=== PATIENT | female | born 1975 | race Caucasian/White ===

== ENCOUNTER 2024-12-03 18:38 | Emergency (ER) | payer OTHER ==
[2024-12-03 19:30] LABS: BASOPHILS PERCENT AUTO 0.4 % (0.2-1.5); EOSINOPHILS ABSOLUTE AUTO 0.1 x10-3/uL (0.0-0.8); EOSINOPHILS PERCENT AUTO 1.3 % (0.6-8.1); HEMOGLOBIN 13.7 g/dL (11.4-15.5); LYMPHOCYTES PERCENT AUTO 38.6 % (18.4-52.1); MEAN CORPUSCULAR HEMOGLOBIN 29.5 pg (23.9-33.9); MEAN CORPUSCULAR HGB CONC 34.2 g/dL (31.9-34.8); MEAN CORPUSCULAR VOLUME 86.3 fL (76.7-100.5); MEAN PLATELET VOLUME 7.5 fL (7.1-12.4); MONOCYTES ABSOLUTE AUTO 0.4 x10-3/uL (0.3-1.0); MONOCYTES PERCENT AUTO 5.4 % (4.4-15.7); NEUTROPHILS ABSOLUTE AUTO 4.2 x10-3/uL (1.5-6.3); NEUTROPHILS PERCENT AUTO 54.3 % (30.8-76.2); PLATELET COUNT,PLT 331 x10(3)uL (151-488); RED BLOOD CELL COUNT 4.64 x10(6)uL (3.60-5.20); RED CELL DISTRIBUTION WIDTH 13.3 % (12.3-16.5); WHITE BLOOD CELL COUNT,WBC 7.7 x10-3/uL (3.0-10.3)
[2024-12-03] MEDS: Sodium Chloride 0.9% 1,000 ML IV ONE (19:33)
[2024-12-03] MEDS: HYDROmorphone 2 MG/ML SDV IVPUSH ONE (19:33)
[2024-12-03] MEDS: Ondansetron 4 MG/2 ML SDV IVPUSH PRN (19:34)
[2024-12-03 19:36] LABS: BLOOD UREA NITROGEN,BUN 13 mg/dL (7-18); BUN/CREATININE RATIO 11.8 (9-20); CALCIUM 9.2 mg/dL (8.6-10.2); CARBON DIOXIDE,CO2 31 mmol/L (21-32); CHLORIDE,CL 102 mmol/L (100-110); CREATININE 1.1 mg/dL (0.55-1.02); EST CRCL DRUG DOSING (CG) 65.36 mL/min; ESTIMATED GFR 62 mL/min (>60); GLUCOSE RANDOM 144 mg/dL (80-116); POTASSIUM,K 3.6 mmol/L (3.5-5.3); SODIUM,NA 140 mmol/L (135-145)
[2024-12-03 19:41] LABS: A/G RATIO 1.3; ALANINE AMINOTRANSFERASE,ALT 50 U/L (12-36); ALBUMIN 4.2 g/dL (3.5-5.2); ALKALINE PHOSPHATASE 85 IU/L (56-112); ASPARTATE AMNIOTRANSFERASE,AST 33 IU/L (5-25); PROTEIN TOTAL,TP 7.4 g/dL (6.0-8.0)
[2024-12-03] MEDS: Iopamidol 755 Mg/ML 100 ML Bottle IV SCH (20:17)
[2024-12-03 20:21] LABS: BILIRUBIN TOTAL 0.4 mg/dL (0.1-1.3)
[2024-12-03] MEDS: Promethazine 12.5 MG in Sodium Chloride 0.9% 50 ML IV PRN (20:44)
[2024-12-03] MEDS: Alum Hydroxide/Mag Hydroxide 15 ML, Lidocaine 2% 15 ML PO ONE (21:23)
== END 2024-12-03 21:35 | disposition home or self-care (01) ==
LOC: FB.ED 18:38
DX: K21.9 Gastro-esophageal reflux disease without esophagitis (principal); Z79.899 Other long term (current) drug therapy
CPT/HCPCS: 36415; 74177; 80053; 83690; 85025; 96365; 96375; 99284; A9270; J1171; J2405; J2550; Q9967

== ENCOUNTER 2025-01-03 19:43 | Emergency (ER) | payer OTHER ==
[2025-01-03] MEDS: hydrOXYzine HCl 50 MG/ML SDV IM ONE (20:17)
[2025-01-03] MEDS: HYDROmorphone 2 MG/ML SDV IM ONE (20:17)
[2025-01-03] MEDS ORDERED: Sodium Chloride 0.9% 10 ML Syringe FLUSH PRN (20:32)
[2025-01-03] MEDS: Ondansetron 4 MG/2 ML SDV IVPUSH ONE (20:40)
[2025-01-03] MEDS: LORazepam 2 MG/ML SDV IVPUSH ONE (20:41)
[2025-01-03] MEDS: fentaNYL 100 MCG/2 ML SDV IVPUSH ONE (20:42)
[2025-01-03 20:47] LABS: BASOPHILS ABSOLUTE AUTO 0.1 x10-3/uL (0.0-0.1); BASOPHILS PERCENT AUTO 0.7 % (0.2-1.5); EOSINOPHILS ABSOLUTE AUTO 0.1 x10-3/uL (0.0-0.8); EOSINOPHILS PERCENT AUTO 1.1 % (0.6-8.1); HEMATOCRIT 40.2 % (34.2-48.2); HEMOGLOBIN 13.6 g/dL (11.4-15.5); LYMPHOCYTES ABSOLUTE AUTO 3.4 x10-3/uL (1.0-4.4); LYMPHOCYTES PERCENT AUTO 40.2 % (18.4-52.1); MEAN CORPUSCULAR HEMOGLOBIN 29.3 pg (23.9-33.9); MEAN CORPUSCULAR HGB CONC 33.9 g/dL (31.9-34.8); MEAN CORPUSCULAR VOLUME 86.5 fL (76.7-100.5); MEAN PLATELET VOLUME 7.5 fL (7.1-12.4); MONOCYTES ABSOLUTE AUTO 0.6 x10-3/uL (0.3-1.0); MONOCYTES PERCENT AUTO 6.8 % (4.4-15.7); NEUTROPHILS ABSOLUTE AUTO 4.3 x10-3/uL (1.5-6.3); NEUTROPHILS PERCENT AUTO 51.2 % (30.8-76.2); PLATELET COUNT,PLT 339 x10(3)uL (151-488); RED BLOOD CELL COUNT 4.65 x10(6)uL (3.60-5.20); RED CELL DISTRIBUTION WIDTH 13.5 % (12.3-16.5); WHITE BLOOD CELL COUNT,WBC 8.5 x10-3/uL (3.0-10.3)
[2025-01-03 20:49] LABS: BLOOD UREA NITROGEN,BUN 14 mg/dL (7-18); BUN/CREATININE RATIO 12.7 (9-20); CALCIUM 9.2 mg/dL (8.6-10.2); CARBON DIOXIDE,CO2 29 mmol/L (21-32); CHLORIDE,CL 103 mmol/L (100-110); CREATININE 1.1 mg/dL (0.55-1.02); EST CRCL DRUG DOSING (CG) 49.47 mL/min; ESTIMATED GFR 62 mL/min (>60); GLUCOSE RANDOM 123 mg/dL (80-116); POTASSIUM,K 3.8 mmol/L (3.5-5.3); SODIUM,NA 142 mmol/L (135-145)
[2025-01-03 20:51] LABS: C-REACTIVE PROTEIN 0.69 mg/dL (<0.50)
[2025-01-03 20:55] LABS: A/G RATIO 1.1; ALANINE AMINOTRANSFERASE,ALT 62 U/L (12-36); ALBUMIN 4.1 g/dL (3.5-5.2); ALKALINE PHOSPHATASE 96 IU/L (56-112); ASPARTATE AMNIOTRANSFERASE,AST 36 IU/L (5-25); BILIRUBIN TOTAL 0.5 mg/dL (0.1-1.3); PROTEIN TOTAL,TP 7.9 g/dL (6.0-8.0)
[2025-01-03] MEDS ORDERED: Sodium Chloride 0.9% 1,000 ML IV SCH (21:00)
== END 2025-01-03 21:45 | disposition home or self-care (01) ==
LOC: FB.ED 19:43
DX: R10.12 Left upper quadrant pain (principal); Z90.710 Acquired absence of both cervix and uterus; Z90.49 Acquired absence of other specified parts of digestive tract; Z79.899 Other long term (current) drug therapy
CPT/HCPCS: 36415; 80053; 83605; 83690; 84484; 85025; 86140; 96372; 96374; 96375; 99284; J1171; J2060; J2405; J3010; J3410

== ENCOUNTER 2025-01-31 16:31 | Emergency (ER) | payer OTHER ==
[2025-01-31] MEDS: Ketorolac 30 MG/ML SDV IVPUSH ONE (17:17)
[2025-01-31] MEDS: Sodium Chloride 0.9% 1,000 ML IV ONE (17:17)
[2025-01-31] MEDS: LORazepam 2 MG/ML SDV IVPUSH ONE ×2 (17:17→17:42)
[2025-01-31 17:20] LABS: BASOPHILS PERCENT AUTO 0.4 % (0.2-1.5); EOSINOPHILS PERCENT AUTO 0.5 % (0.6-8.1); HEMATOCRIT 40.8 % (34.2-48.2); HEMOGLOBIN 13.8 g/dL (11.4-15.5); LYMPHOCYTES ABSOLUTE AUTO 3.1 x10-3/uL (1.0-4.4); LYMPHOCYTES PERCENT AUTO 34.2 % (18.4-52.1); MEAN CORPUSCULAR HEMOGLOBIN 29.6 pg (23.9-33.9); MEAN CORPUSCULAR HGB CONC 33.9 g/dL (31.9-34.8); MEAN CORPUSCULAR VOLUME 87.3 fL (76.7-100.5); MONOCYTES ABSOLUTE AUTO 0.7 x10-3/uL (0.3-1.0); MONOCYTES PERCENT AUTO 7.6 % (4.4-15.7); NEUTROPHILS ABSOLUTE AUTO 5.2 x10-3/uL (1.5-6.3); NEUTROPHILS PERCENT AUTO 57.3 % (30.8-76.2); PLATELET COUNT,PLT 361 x10(3)uL (151-488); RED BLOOD CELL COUNT 4.67 x10(6)uL (3.60-5.20); RED CELL DISTRIBUTION WIDTH 13.6 % (12.3-16.5)
[2025-01-31 17:24] LABS: A/G RATIO 1.2; ALBUMIN 4.2 g/dL (3.5-5.2); ALKALINE PHOSPHATASE 98 IU/L (56-112); BILIRUBIN TOTAL 0.5 mg/dL (0.1-1.3); BLOOD UREA NITROGEN,BUN 11 mg/dL (7-18); CALCIUM 9.1 mg/dL (8.6-10.2); CARBON DIOXIDE,CO2 29 mmol/L (21-32); CHLORIDE,CL 104 mmol/L (100-110); EST CRCL DRUG DOSING (CG) 54.41 mL/min; ESTIMATED GFR 69 mL/min (>60); GLUCOSE RANDOM 127 mg/dL (80-116); POTASSIUM,K 3.6 mmol/L (3.5-5.3); PROTEIN TOTAL,TP 7.7 g/dL (6.0-8.0); SODIUM,NA 143 mmol/L (135-145)
[2025-01-31 17:25] LABS: ALANINE AMINOTRANSFERASE,ALT 53 U/L (12-36); ASPARTATE AMNIOTRANSFERASE,AST 24 IU/L (5-25)
[2025-01-31 17:55] LABS: BILIRUBIN,URINE NEGATIVE (NEGATIVE); GLUCOSE,URINE NORMAL (NORMAL); KETONES,URINE NEGATIVE (NEGATIVE); LEUKOCYTE ESTERASE,URINE NEGATIVE (NEGATIVE); NITRITE,URINE NEGATIVE (NEGATIVE); OCCULT BLOOD,URINE NEGATIVE (NEGATIVE); PROTEIN,URINE NEGATIVE (NEGATIVE); UROBILINOGEN,URINE NORMAL (NEGATIVE)
[2025-01-31 18:03] LABS: AMORPHOUS SEDIMENT,URINE MANY; APPEARANCE,URINE CLOUDY (CLEAR); BACTERIA,URINE MODERATE (NS); COLOR,URINE YELLOW (YELLOW); SQUAMOUS EPITHELIAL CELLS,UR FEW (NS,R,O); WBC,URINE 0-5 (0-5)
[2025-01-31] MEDS: predniSONE 20 MG Tab PO ONE (18:46)
[2025-01-31] MEDS: Sulfamethoxazole/Trimethoprim 800-160 MG Tab PO ONE (18:46)
== END 2025-01-31 18:54 | disposition home or self-care (01) ==
LOC: FB.ED 16:31
DX: R25.1 Tremor, unspecified (principal); R23.2 Flushing; R03.0 Elevated blood-pressure reading, without diagnosis of hypertension; N39.0 Urinary tract infection, site not specified; R79.82 Elevated C-reactive protein (CRP); Z79.899 Other long term (current) drug therapy; Z90.49 Acquired absence of other specified parts of digestive tract; Z90.710 Acquired absence of both cervix and uterus
CPT/HCPCS: 36415; 80053; 81001; 84443; 85025; 86140; 87086; 96361; 96374; 96375; 99284; A9270; J1885; J2060; J7030; J7512; 93010

== ENCOUNTER 2025-06-06 09:31 | Emergency (ER) | payer OTHER ==
[2025-06-06] MEDS ORDERED: Lidocaine 2% with EPINEPHrine 1:100,000 20 ML MDV INFILT ONE (09:32)
== END 2025-06-06 10:35 | disposition home or self-care (01) ==
LOC: FB.ED 09:31
DX: S01.01XA Laceration without foreign body of scalp, initial encounter (principal); Z90.49 Acquired absence of other specified parts of digestive tract; Z79.899 Other long term (current) drug therapy; W11.XXXA Fall on and from ladder, initial encounter; Y93.89 Activity, other specified
CPT/HCPCS: 12001; 99283; J2004